=== PATIENT | male | born 1965 | race Caucasian/White ===

== ENCOUNTER 2018-05-01 10:14 | Day surgery (SDC) | payer OTHER ==
[2018-04-30 14:24] VITALS: BMI 38.3
[2018-05-01 12:06] VITALS: TEMP 97.7
[2018-05-01 12:52] VITALS: BP 117/74; PULSE 54
--- NOTE | 2018-05-04 17:55 | PATH ---
Surgical Pathology Report Patient Name: GRACE BARCENAS [facility]. Rec. #: [id number] /Age/Gender: 1965 (Age: 52) / M Account: [id number] Location: ASU-ENDOSCOPY Taken: 05/01/2018 Received: 05/01/2018 Reported: 05/04/2018 Physicians: Janay Mendenhall M.D. Specimen(s) Received A: BX RIGHT COLON POLYP B: BX PROXIMAL TRANSVERSE COLON Clinical History Surveillance colonic polyp Postoperative diagnosis: Diverticulosis, colon polyps Final Diagnosis A. COLON, RIGHT, POLYP, POLYPECTOMY: TUBULOVILLOUS ADENOMA. B. PROXIMAL TRANSVERSE COLON, POLYPS, POLYPECTOMY: TUBULAR ADENOMA(S). Electronically Signed Val Briones M.D. Gross Description A. Received in formalin, labeled "polyp from right colon" is a [place], irregular portion of soft tissue measuring 0.7 cm. in greatest dimension. The specimen is submitted in toto in one cassette. B. Received in formalin, labeled "polyps proximal transverse colon" are 3 [place], irregular portions of soft tissue ranging from 0.3-0.7 cm. in greatest dimension. The specimens are submitted in toto in one cassette. DL05/01/2018 saudi05/01/2018
== END 2018-05-01 12:54 | disposition home or self-care (01) ==
LOC: JASU-ENDO 10:14
PROVIDERS: ATTEND Internal Medicine Gastroenterology
PROC: 0DBL8ZX Excision of Transverse Colon, Via Natural or Artificial Opening Endoscopic, Diagnostic (ICD-10-PCS; 2018-05-01)
PROC: 0DBK8ZX Excision of Ascending Colon, Via Natural or Artificial Opening Endoscopic, Diagnostic (ICD-10-PCS; principal; 2018-05-01 11:30)
DX: Z86.010 Personal history of colon polyps (principal); D12.3 Benign neoplasm of transverse colon; D12.2 Benign neoplasm of ascending colon; K57.30 Diverticulosis of large intestine without perforation or abscess without bleeding; K64.8 Other hemorrhoids
CPT/HCPCS: 88305-TC